=== PATIENT | male | born 1995 | race Caucasian/White ===

== ENCOUNTER 2022-12-13 06:01 | Emergency (ER) | payer BC, OTHER ==
[~2022-12-13] VITALS: Ht 167.6 cm; Wt 54.4 kg
[2022-12-13 06:04] VITALS: BP 133/80; PULSE 117; RESP 16; TEMP 97.4; O2SAT 100
[2022-12-13] MEDS ORDERED: KETOROLAC 30 MG/ML VIAL IVP ONE (06:35)
[2022-12-13] MEDS ORDERED: ACETAMINOPHEN EXTRA STRENGTH 500 MG TAB PO ONE (06:35)
[2022-12-13] MEDS ORDERED: MORPHINE SULFATE 4 MG/ML SYR IVP ONE (09:05)
[2022-12-13] MEDS ORDERED: ACET-8905 PO (09:48)
[2022-12-13] MEDS ORDERED: IBUP-2213 PO (09:48)
[2022-12-13 10:22] VITALS: BP 135/76; PULSE 89; RESP 18; TEMP 36.72516; O2SAT 98
== END 2022-12-13 10:22 | disposition home or self-care (01) ==
LOC: MED 06:01
DX: S82.55XA Nondisplaced fracture of medial malleolus of left tibia, initial encounter for closed fracture (principal); S00.81XA Abrasion of other part of head, initial encounter; Z79.899 Other long term (current) drug therapy; V43.52XA Car driver injured in collision with other type car in traffic accident, initial encounter; Y93.89 Activity, other specified; Y92.89 Other specified places as the place of occurrence of the external cause; Y99.8 Other external cause status
CPT/HCPCS: 29515; 71045; 73562; 73590; 73610; 96374; 96375; 99284; J1885; J2270; Q0092